=== PATIENT | male | born 1980 | race Caucasian/White ===

== ENCOUNTER 2020-01-23 13:35 | Emergency (ER) | payer OTHER ==
[2020-01-23] MEDS ORDERED: HYDROCODONE/ACETAMINOPHEN 5-325 MG TABLET PO ONE (15:18)
[2020-01-23] MEDS ORDERED: LISINOPRIL 10 MG TABLET PO ONE (15:18)
--- NOTE | 2020-01-23 15:19 | ER Document Report ---
ED Medical Screen (RME) - General Chief Complaint: Chest Pain Stated Complaint: CHEST PAIN,ELEVATED BLOOD PRESSURE Time Seen by Provider: 01/23/20 15:12 Notes: HPI: 39-year-old male with prior history of hypertension who is been on lisinopril while in the presenting for 2 weeks of a generalized headache that waxes and wanes. No vision changes. Has had intermittent chest heaviness over the last 2 weeks as well. No shortness of breath. Discomfort seems to go into the left shoulder but not down the left arm neck or into the back. PHYSICAL EXAMINATION: Lung sounds are clear to auscultation regular rate and rhythm. EKG normal sinus rhythm without visible ectopy. Alert and oriented x3 answering all questions appropriately gait is normal I have greeted and performed a rapid initial assessment of this patient. A comprehensive ED assessment and evaluation of the patient, analysis of test results and completion of medical decision making process will be conducted by an additional ED providers. - Related Data Allergies/Adverse Reactions: Sulfa (Sulfonamide Antibiotics) Allergy (Verified 08/23/13 09:11) Past Medical History - Social History Chew tobacco use (# tins/day): Yes Frequency of alcohol use: Occasional Drug Abuse: Marijuana - Past Medical History Cardiac Medical History: Reports: Hx Hypertension - Immunizations Hx Diphtheria, Pertussis, Tetanus Vaccination: Yes Physical Exam - Vital signs Vitals: Temp Pulse Resp BP Pulse Ox 98.5 F 63 16 160/110 H 100 01/23/20 13:52 01/23/20 13:52 01/23/20 13:52 01/23/20 13:52 01/23/20 13:52 Course - Vital Signs Vital signs: Temp Pulse Resp BP Pulse Ox 98.5 F 63 16 160/110 H 100 01/23/20 15:03 01/23/20 13:52 01/23/20 13:52 01/23/20 13:52 01/23/20 13:52
[2020-01-23 15:42] LABS: ABSOLUTE BASOPHILS # (AUTO) 0.1 10^3/uL (0.0-0.2); ABSOLUTE EOSINOPHILS # (AUTO) 0.1 10^3/uL (0.0-0.6); ABSOLUTE LYMPHOCYTES (AUTO) 2.7 10^3/uL (0.5-4.7); ABSOLUTE MONOCYTES (AUTO) 0.5 10^3/uL (0.1-1.4); ABSOLUTE NEUT (AUTO) 4.2 10^3/uL (1.7-8.2); BASOPHILS % (AUTO) 0.8 % (0-2); EOSINOPHILS % (AUTO) 1.8 % (0-6); HEMATOCRIT 44.1 % (37.9-51.0); HEMOGLOBIN 15.5 g/dL (13.5-17.0); LYMPHOCYTES % (AUTO) 35.7 % (13-45); MEAN CORPUSCULAR HEMOGLOBIN 31.3 pg (27.0-33.4); MEAN CORPUSCULAR VOLUME 89 fl (80-97); MONOCYTES % (AUTO) 6.6 % (3-13); PLATELET COUNT 244 10^3/uL (150-450); RED BLOOD COUNT 4.94 10^6/uL (4.35-5.55); RED CELL DISTRIBUTION WIDTH 13.1 % (11.5-14.0); SEGMENTED NEUTROPHILS % (AUTO) 55.1 % (42-78); TOTAL CELLS COUNTED % (AUTO) 100 %; WHITE BLOOD COUNT 7.6 10^3/uL (4.0-10.5)
[2020-01-23 15:57] LABS: ALBUMIN 4.6 g/dL (3.5-5.0); ALKALINE PHOSPHATASE 63 U/L (38-126); ANION GAP 6 (5-19); ASPARTATE AMINO TRANSFERASE 23 U/L (17-59); BILIRUBIN,TOTAL 0.5 mg/dL (0.2-1.3); BLOOD UREA NITROGEN 10 mg/dL (7-20); CALCIUM 9.5 mg/dL (8.4-10.2); CARBON DIOXIDE 30 mmol/L (22-30); CHLORIDE 103 mmol/L (98-107); GLUCOSE 103 mg/dL (75-110); POTASSIUM 4.6 mmol/L (3.6-5.0); TOTAL PROTEIN 7.3 g/dL (6.3-8.2)
--- NOTE | 2020-01-23 16:14 | RADIOLOGY REPORT (SQ) ---
EXAM DESCRIPTION: CHEST SINGLE VIEW IMAGES COMPLETED DATE/TIME: 01/23/2020 4:03 pm REASON FOR STUDY: chest pain COMPARISON: None. EXAM PARAMETERS: NUMBER OF VIEWS: One view. TECHNIQUE: Single frontal radiographic view of the chest acquired. RADIATION DOSE: NA LIMITATIONS: None. FINDINGS: LUNGS AND PLEURA: No opacities, masses or pneumothorax. No pleural effusion. MEDIASTINUM AND HILAR STRUCTURES: No masses. Contour normal. HEART AND VASCULAR STRUCTURES: Heart normal in size. Normal vasculature. BONES: No acute findings. HARDWARE: None in the chest. OTHER: No other significant finding. IMPRESSION: 1. NO ACUTE RADIOGRAPHIC FINDING IN THE CHEST. TECHNICAL DOCUMENTATION: JOB ID: [id number] 2010 [employer]- All Rights Reserved Reading location - IP/workstation name: [email or web address]
[2020-01-23 18:33] VITALS: BP 164/108
--- NOTE | 2020-01-23 18:45 | ER Document Report ---
ED General - General Chief Complaint: Chest Pain Stated Complaint: CHEST PAIN,ELEVATED BLOOD PRESSURE Time Seen by Provider: 01/23/20 15:12 Primary Care Provider: LOUIE MARSH MD [ACTIVE STAFF] - Follow up as needed TODD WILSON MD [ACTIVE STAFF] - Follow up as needed Mode of Arrival: Ambulatory Information source: Patient TRAVEL OUTSIDE OF THE [place] IN LAST 30 DAYS: No - HPI Onset: Other - chest pain for last several weeks. BP noticed to be high today at Dentist Onset/Duration: Gradual Quality of pain: Pressure Severity: Mild Pain Level: 1 Associated symptoms: Other - Anxiety, Chest Pain, High Blood Pressure Exacerbated by: Denies Relieved by: Denies Similar symptoms previously: No Recently seen / treated by doctor: No Notes: 39 year old male with a prior history of HTN who used to be maintained on Lisinopril 5mg Daily (he has not been on this in over 5 years) here in the ER for several weeks of chest pains, headaches, and anxiety as well as high blood pressure which was noticed at his Dentist Office this morning. The patient says he recently lost his job and he has been under a fair amount of stress as of late. The patient was told his BP was too high to have dental work today and he was told he needed medical clearance. The patient has no PCP at the moment. The patient says he will have off and on chest pains and headaches and he is not sure of anything in particular that will make the symptoms better or worse or start or stop. The patient denies trouble breathing, shortness of breath, nausea, vomiting, fevers, chills, sweats, radiation of chest pain. The patient does not think food or drink intake affects his symptoms. The patient has had GERD before and this doesnt feel the same to him. - Related Data Allergies/Adverse Reactions: Sulfa (Sulfonamide Antibiotics) Allergy (Verified 08/23/13 09:11) Past Medical History - General Information source: Patient - Social History Smoking Status: Never Smoker Chew tobacco use (# tins/day): Yes Frequency of alcohol use: Occasional Drug Abuse: Marijuana Family History: Reviewed & Not Pertinent Patient has homicidal ideation: No - Past Medical History Cardiac Medical History: Reports: Hx Hypertension Past Surgical History: Reports: Hx Tonsillectomy - Immunizations Hx Diphtheria, Pertussis, Tetanus Vaccination: Yes Review of Systems - Review of Systems Constitutional: No symptoms reported EENT: No symptoms reported Cardiovascular: Chest pain Respiratory: No symptoms reported Gastrointestinal: No symptoms reported Genitourinary: No symptoms reported Male Genitourinary: No symptoms reported Musculoskeletal: No symptoms reported Skin: No symptoms reported Hematologic/Lymphatic: No symptoms reported Neurological/Psychological: Anxiety, Headaches -: Yes All other systems reviewed and negative Physical Exam - Vital signs Vitals: Temp Pulse Resp BP Pulse Ox 98.5 F 63 16 160/110 H 100 01/23/20 13:52 01/23/20 13:52 01/23/20 13:52 01/23/20 13:52 01/23/20 13:52 - Notes Notes: GENERAL: Well-appearing, well-nourished and in no acute distress. HEAD: Atraumatic, normocephalic. EYES: Pupils equal round and reactive to light, extraocular movements intact, sclera anicteric, conjunctiva are normal. ENT: External Ears normal, nares patent, oropharynx clear without exudates. Moist mucous membranes. NECK: Normal range of motion, supple without lymphadenopathy or JVD. LUNGS: Breath sounds clear to auscultation bilaterally and equal. No wheezes rales or rhonchi. HEART: Regular rate and rhythm without murmurs, rubs or gallops. ABDOMEN: Soft, nontender, normoactive bowel sounds. No guarding, no rebound. No masses appreciated. EXTREMITIES: Normal range of motion, no pitting or edema. No clubbing or cyanosis. NEUROLOGICAL: Cranial nerves II through XII grossly intact. Normal speech, normal gait. PSYCH: Normal mood, normal affect. SKIN: Warm, Dry, normal turgor, no rashes or lesions noted. Course - Re-evaluation Re-evalutation: 01/23/20 19:06 The patient is here in the ER for evaluation of off and on chest pains and headaches and for high blood pressure which was discovered today at his dentist's office. The patient says he has been under a lot of stress due to losing his job and being at home dealing with the needs of his children during a pandemic. The patient is low risk for ACS and his work up in the ER was unremarkable including a normal Trop, normal EKG, and normal chest xray. The patient is PERC negative making PE unlikely. The patient likely is simplty having stress/anxiety, however, he used to be on Lisinopril due to HTN and this still may be an issue for him. The patient was prescribed Lisinopril 5mg daily and he was told to follow up with a PCP for further management of his possible HTN since he had a dental procedure canceled today due to HTN. - Vital Signs Vital signs: Temp Pulse Resp BP Pulse Ox 98.5 F 63 14 164/108 H 92 01/23/20 15:03 01/23/20 13:52 01/23/20 18:31 01/23/20 18:30 01/23/20 18:33 - Laboratory Result Diagrams: 01/23/20 15:27 01/23/20 15:27 - Diagnostic Test Radiology reviewed: Image reviewed, Reports reviewed - EKG Interpretation by Me EKG shows normal: Sinus rhythm, [place], Intervals, QRS Complexes, ST-T Waves Rate: Normal Rhythm: NSR Discharge - Discharge Clinical Impression: Anxiety Chest pain Qualifiers: Chest pain type: unspecified Qualified Code(s): R07.9 - Chest pain, unspecified Condition: Stable Disposition: HOME, SELF-CARE Instructions: Anxiety ([facility]), Chest Wall Pain ([facility]), Chest Pain of Unclear Cause ([facility]), High Blood Pressure ([facility]) Additional Instructions: Start taking Lisinopril 5mg daily. Monitor and record a log of your blood pressures in the days and weeks to come. Follow up with a primary care doctor to go over your blood pressure log and to discuss any further medical issues you may be having. Several primary care doctors are listed in your paperwork. You can also follow up at the [facility]. Prescriptions: Lisinopril [Prinivil] 5 mg PO DAILY #30 tablet Referrals: TODD WILSON MD [ACTIVE STAFF] - Follow up as needed LOUIE MARSH MD [ACTIVE STAFF] - Follow up as needed
--- NOTE | 2020-01-23 20:05 | EKG REPORT ---
SEVERITY:- NORMAL ECG - SINUS RHYTHM : Confirmed by: Sanjay Woodruff MD 23-Jan-2020 20:05:07
== END 2020-01-23 19:07 | disposition home or self-care (01) ==
LOC: ER 13:35
DX: F41.9 Anxiety disorder, unspecified (principal); I10 Essential (primary) hypertension; R07.9 Chest pain, unspecified; R51 Headache; Z56.0 Unemployment, unspecified; F12.10 Cannabis abuse, uncomplicated; Z88.2 Allergy status to sulfonamides; Z63.79 Other stressful life events affecting family and household
CPT/HCPCS: 36415; 71045; 80053; 84484; 85025; 93005; 93010; 99285